=== PATIENT | female | born 1980 | race Caucasian/White ===

== ENCOUNTER 2017-12-20 05:48 | Inpatient (IN) | payer OTHER ==
[2017-12-20] MEDS ORDERED: Albuterol/Ipratropium Neb 3 ML AERS HHN ONE ×5 (06:15→11:46)
--- NOTE | 2017-12-20 06:28 | ED Physician Chart ---
ED Chief Complaint/HPI - Patient Information Date Seen:: 12/20/17 Time Seen:: 06:00 Chief Complaint:: shortness of breath History of Present Illness:: Patient developed marked shortness of breath at O230 this morning. Patient's had a cough productive of yellow sputum and wheezing for the last 10 days. Her axillary temperature has been up to 100 this morning. Only moments ago did she have 1 brief episode of pleuritic chest pain. No recent vomiting or diarrhea. 3 weeks ago patient had abdominal pain for which she went to [facility] and was diagnosed as having constipation. Patient thinks that about 1 year ago when she was she had her last tetanus shot which would have included pertussis. Patient discontinued taking control pills last June or July. She denies recent calf or thigh pain or swelling. No recent prolonged immobilizations. Allergies:: Allergies Allergy/AdvReac Type Severity Reaction Status Date / Time No Known Allergies Allergy Verified 12/20/17 06:03 Vitals:: Vital Signs - 8 hr 12/20/17 05:50 Temp 98.6 F HR 91 RR 24 BP 115/51 O2 Sat % 100 Historian:: Patient Review:: Nurse's Note Reviewed <Cliff Richmond - Last Filed: 12/20/17 06:55> - Patient Information History of Present Illness:: Patient also had intermittent RLQ abdominal pain for 4 weeks. She went to [facility] ER 3 weeks ago due to sharp pain and nausea and CT abdomen without contrast showed fecal impaction. However, the abdominal pain persisted until now. Patient also had frontal headache for 2 weeks. It was throbbing headache without photosensitivity. The headache had worsened since this morning. Allergies:: Allergies Allergy/AdvReac Type Severity Reaction Status Date / Time No Known Allergies Allergy Verified 12/20/17 06:03 Vitals:: Vital Signs - 8 hr 12/20/17 12/20/17 05:50 06:27 Temp 98.6 F HR 91 94 RR 24 15 BP 115/51 O2 Sat % 100 100 <Rickie Munoz - Last Filed: 12/20/17 23:34> ED Review of Systems - Review of Systems General/Constitutional: Fever, Chills Skin: No skin lesions, No rash, No bruising Head: No headache, No light-headedness Eyes: No loss of vision, No pain, No diplopia ENT: No earache, No nasal drainage, No sore throat, No tinnitus Neck: No neck pain, No swelling, No thyromegaly, No stiffness, No mass noted Cardio Vascular: No chest pain, No palpitations, No PND, No orthopnea, No edema Pulmonary: SOB, Cough, Sputum, No wheezing GI: No nausea, No vomiting, No diarrhea, No pain, No melena, No hematochezia, No constipation, No hematemesis G/U: No dysuria, No frequency, No hematuria Musculoskeletal: No bone or joint pain, No back pain, No muscle pain Endocrine: No polyuria, No polydipsia Psychiatric: No prior psych history, No depression, No anxiety, No suicidal ideation Hematopoietic: No bruising, No lymphadenopathy Allergic/Immuno: No urticaria, No angioedema Neurological: No syncope, No focal symptoms, No weakness, No paresthesia, No headache, No seizure, No dizziness, No confusion, No vertigo <Cliff Richmond - Last Filed: 12/20/17 06:55> ED Past Medical History - Past Medical History Past Medical History: Asthma/COPD, Other (exercise-induced asthma) Family History: Heart disease, HTN Social History: Non Smoker, Alcohol (occasional alcohol consumption), No Drug Use Surgical History: , other (laparotomy for ovarian cysts) Psychiatricy History: None <Cliff Richmond - Last Filed: 12/20/17 06:55> Family Medical History - Family Member Mother Ethnicity: Non- Living Status: Still Living Hx Family Hypertension: Yes <Cliff Richmond - Last Filed: 12/20/17 06:55> ED Physical Exam - Physical Examination General/Constitutional: Awake, Well-developed, well-nourished, Alert, No distress, GCS 15, Non-toxic appearing Other Gen/Cons comments:: Patient has frequent coughing. She speaks in full sentences. Head: Atraumatic Eyes: Lids, conjuctiva normal, PERRL, EOMI Skin: Nl inspection, No rash, No skin lesions, No ecchymosis, Well hydrated, No lymphadenopathy ENMT: External ears, nose nl, Nasal exam nl, Lips, teeth, gums nl Neck: Nontender, Full ROM w/o pain, No JVD, No nuchal rigidity, No bruit, No mass, No stridor Respiratory: Nl effort/Exclusion, Clear to Auscultation, No Wheeze/Rhonchi/Rales Cardio Vascular: RRR, No murmur, gallop, rubs, NL S1 S2 GI: No tenderness/rebounding/guarding, No organomegaly, No hernia, Normal BS's, Nondistended, No mass/bruits, No McBurney tenderness : No CVA tenderness Extremities: No tenderness or effusion, Full ROM, normal strength in all extremities, No edema, Normal digits & nails Neuro/Psych: Alert/oriented, DTR's symmetric, Normal sensory exam, Normal motor strength, Judgement/insight normal, Mood normal, Normal gait, No focal deficits Misc: Normal back, No paraspinal tenderness <Cliff Richmond - Last Filed: 12/20/17 06:55> - Physical Examination Other GI comments:: RLQ and LLQ tenderness Other Neuro/Psych comments:: No drift, no nuchal rigidity. <Rickie Munoz - Last Filed: 12/20/17 23:34> ED Labs/Radiology/EKG Results - Lab Results Results: Laboratory Tests 12/20/17 12/20/17 12/20/17 06:10 06:23 06:23 WBC 20.5 H* RBC 4.66 Hgb 13.9 Hct 41.2 MCV 88.5 MCH 29.9 MCHC Differential 33.8 RDW 11.6 Plt Count 278 MPV 7.9 Neutrophils % DOOR TRIMMER Band Neutrophils % 8 Lymphocytes % DOOR TRIMMER Monocytes % DOOR TRIMMER Eosinophils % DOOR TRIMMER Basophils % DOOR TRIMMER Neutrophils (Manual) 83 H Lymphocytes 6 L Monocytes 3 D-Dimer Sodium 134 L Potassium 3.1 L Chloride 104 Carbon Dioxide 16.9 L Anion Gap 16.2 H BUN 17 Creatinine 0.8 Est GFR ( Amer) > 60.0 Est GFR (Non-Af Amer) > 60.0 BUN/Creatinine Ratio 21.3 Glucose 118 H Whole Bld Lactic Acid Calcium 9.6 Magnesium 1.6 L Urine Test NEGATIVE POC Ur Test 12/20/17 12/20/17 12/20/17 06:23 06:23 06:23 WBC RBC Hgb Hct MCV MCH MCHC Differential RDW Plt Count MPV Neutrophils % Band Neutrophils % Lymphocytes % Monocytes % Eosinophils % Basophils % Neutrophils (Manual) Lymphocytes Monocytes D-Dimer 438 H Sodium Potassium Chloride Carbon Dioxide Anion Gap BUN Creatinine Est GFR ( Amer) Est GFR (Non-Af Amer) BUN/Creatinine Ratio Glucose Whole Bld Lactic Acid 2.53 H* Calcium Magnesium Urine Test POC Ur Test Negative - Radiology Results Results: CT abdomen/pelvis with contrast: mild bilateral adenexal fullness, no other definite acute abnormality CT head without contrast: no acute intracranial abnormalities <Rickie Munoz - Last Filed: 12/20/17 23:34> ED Assessment - Assessment General Assessment: Signed out to Dr. Munoz at 0700. <Cliff Richmond - Last Filed: 12/20/17 06:55> - Assessment Assessment/Comments:: NS 1L IV bolus Rocephin 1g IV Azithromycin 500mg IV Magnesium 2g IV KCl 40mEq PO DuoNeb D-dimer was 438, which was slightly higher than normal. CXR: no focal consolidation CT abdomen with contrast CT head without contrast NS 1L IV bolus repeated DuoNeb repeated <Rickie Munoz - Last Filed: 12/20/17 23:34> ED Septic Shock - <6hrs of presentation: Vital Signs: Vital Signs - 8 hr 12/20/17 05:50 Temp 98.6 F HR 91 RR 24 BP 115/51 O2 Sat % 100 <Cliff Richmond - Last Filed: 12/20/17 06:55> - . Is Septic Shock (SBP<90, OR Lactate>4 mmol\L) present?: No - <6hrs of presentation: Vital Signs: Vital Signs - 8 hr 12/20/17 12/20/17 05:50 06:27 Temp 98.6 F HR 91 94 RR 24 15 BP 115/51 O2 Sat % 100 100 <Rickie Munoz - Last Filed: 12/20/17 23:34> ED Reassessment (Disposition) - Reassessment Reassessment Condition:: Improved - Patient Disposition Discharge/Transfer:: Acute Care w/in this hosp Admitting Medical Physician:: Preston Wright <Rickie Munoz - Last Filed: 12/20/17 23:34> ED Discharge Plan <Cliff Richmond - Last Filed: 12/20/17 06:55> <Rickie Munoz - Last Filed: 12/20/17 23:34> - Patient Disposition Admit/Discharge/Transfer: Acute Care w/in this hosp Condition at Disposition: Stable
[2017-12-20 06:32] LABS: BASOPHILE ABSOLUTE 0.2 Th/cumm (0-0.2); HEMATOCRIT 41.2 % (41.0-60); MANUAL DIFF REQUIRED? YES; NEUTROPHILE ABSOLUTE 18.6 Th/cmm (1.8-8.0)
[2017-12-20 06:37] LABS: EOSINOPHILE ABSOLUTE 0.2 Th/cmm (0.1-0.4); HEMOGLOBIN 13.9 gm/dL (12-16); LYMPHOCYTE ABSOLUTE 1.1 Th/cmm (1.5-3.0); MEAN CELL VOLUME 88.5 fl (81-100); MEAN CORPUSCULAR HEMOGLOBIN 29.9 pg (27.0-31.0); MEAN CORPUSCULAR HGB CONC 33.8 pg (28.0-36.0); MEAN PLATELET VOLUME 7.9 fl; MONOCYTE ABSOLUTE 0.4 Th/cmm (0.3-1.0); PLATELET COUNT 278 Th/cmm (150-400); RED BLOOD COUNT 4.66 Mil/cmm (3.80-5.10); RED CELL DISTRIBUTION WIDTH 11.6 % (11.5-20.0)
[2017-12-20 06:41] LABS: WHITE BLOOD COUNT 20.5 Th/cmm (4.8-10.8)
[2017-12-20 06:46] LABS: ANION GAP 16.2 (7.0-16.0); BUN - UREA NITROGEN 17 mg/dL (7-25); CALCIUM SERUM 9.6 mg/dL (8.6-10.3); CARBON DIOXIDE 16.9 mEq/L (21.0-31.0); CHLORIDE 104 mEq/L (98-107); CREATININE - SERUM 0.8 mg/dL (0.6-1.2); GFR AFRICAN-AMERICAN > 60.0 ml/min (>90); GFR NON AFRICAN-AMERICAN > 60.0 ml/min; GLUCOSE 118 mg/dL (70-105); MAGNESIUM 1.6 mg/dL (1.9-2.7); POTASSIUM SERUM 3.1 mEq/L (3.5-5.1); SODIUM SERUM 134 mEq/L (136-145)
[2017-12-20] MEDS ORDERED: Potassium Chloride 20 mEq ER Tab PO ONE ×2 (07:08→07:37)
[2017-12-20] MEDS ORDERED: Mag Sulfate 2gm/50mL Premix 2 GM/50 ML BAG IV ONE ×2 (07:08→07:36)
[2017-12-20] MEDS ORDERED: Sodium Chloride 0.9% 1,000 ML IV ONE ×2 (07:12→11:26)
[2017-12-20] MEDS ORDERED: Azithromycin 500 MG in Sodium Chloride 0.9% 250 ML IV ONE (07:17)
[2017-12-20] MEDS ORDERED: cefTRIAXone 1 GM in Sodium Chloride 0.9% 50 ML IV ONE (07:17)
[2017-12-20 07:21] LABS: BAND NEUTROPHILE 8 % (0-10); LYMPHOCYTE 6 % (20-50); MONOCYTE 3 % (2-10); NEUTROPHILS 83 % (40-80); TOTAL CELLS COUNTED 100
--- NOTE | 2017-12-20 07:50 | Diagnostic Imaging Report ---
Portable chest x-ray Time: 0718 hours History: Shortness of breath Allowing for portable technique the heart size is normal. No focal pulmonary parenchymal processes. No hilar or mediastinal abnormalities. Impression: No acute abnormalities.
[2017-12-20] MEDS ORDERED: IOHEXOL 300mgI/mL 100 ML VIAL ONE (10:05)
[2017-12-20 10:12] LABS: pH 7.43 (7.35-7.45)
[2017-12-20 10:13] LABS: ALLEN TEST y
[2017-12-20 11:08] LABS: EOSINOPHILE ABSOLUTE 0.1 Th/cmm (0.1-0.4); HEMATOCRIT 36.6 % (41.0-60); HEMOGLOBIN 12.8 gm/dL (12-16); LYMPHOCYTE ABSOLUTE 0.9 Th/cmm (1.5-3.0); MANUAL DIFF REQUIRED? YES; MEAN CELL VOLUME 88.7 fl (81-100); MEAN CORPUSCULAR HEMOGLOBIN 31.1 pg (27.0-31.0); MEAN PLATELET VOLUME 7.7 fl; MONOCYTE ABSOLUTE 0.6 Th/cmm (0.3-1.0); NEUTROPHILE ABSOLUTE 25.2 Th/cmm (1.8-8.0); PLATELET COUNT 244 Th/cmm (150-400); RED BLOOD COUNT 4.13 Mil/cmm (3.80-5.10); RED CELL DISTRIBUTION WIDTH 11.4 % (11.5-20.0)
--- NOTE | 2017-12-20 11:08 | Diagnostic Imaging Report ---
CT scan abdomen and pelvis with intravenous contrast HISTORY: Pain Total DLP equals 527 CTDI equals 11.5 Following administration of intravenous contrast, axial sections were obtained from the xiphoid process down to the pubic symphysis. The liver exhibits a normal size and contour with a homogeneous parenchyma. No focal lesions. The spleen appears normal. No abnormality seen about the pancreas. No focal renal lesions. No hydronephrosis. The exam of the pelvis demonstrates bilateral adnexal fullness with hypodensities probably related to ovarian follicular changes. No other significant abnormal masses. No free fluid in the pelvis. The urinary bladder appears normal. No definite abnormality seen in the region of the appendix. IMPRESSION: 1. Mild bilateral adnexal fullness with hypodensities probably related to ovarian follicular changes 2. No other definite acute abnormalities
[2017-12-20 11:17] LABS: WHITE BLOOD COUNT 26.8 Th/cmm (4.8-10.8)
[2017-12-20 11:29] LABS: ANION GAP 11.9 (7.0-16.0); BUN - UREA NITROGEN 12 mg/dL (7-25); CALCIUM SERUM 8.6 mg/dL (8.6-10.3); CARBON DIOXIDE 20.9 mEq/L (21.0-31.0); CHLORIDE 103 mEq/L (98-107); CREATININE - SERUM 0.7 mg/dL (0.6-1.2); GFR AFRICAN-AMERICAN > 60.0 ml/min (>90); GFR NON AFRICAN-AMERICAN > 60.0 ml/min; GLUCOSE 100 mg/dL (70-105); MAGNESIUM 2.6 mg/dL (1.9-2.7); POTASSIUM SERUM 3.8 mEq/L (3.5-5.1); SODIUM SERUM 132 mEq/L (136-145)
[2017-12-20 11:32] LABS: NEUTROPHILS 87 % (40-80); TOTAL CELLS COUNTED 100
[2017-12-20 11:33] LABS: BAND NEUTROPHILE 8 % (0-10); LYMPHOCYTE 5 % (20-50)
--- NOTE | 2017-12-20 14:16 | Diagnostic Imaging Report ---
CT scan of the brain without contrast History: Headache Total DLP equals 601 CTDI equals 36.5 Axial sections were obtained from the base of the skull to the vertex. There is a normal ventricular system size. No focal parenchymal lesions are seen. No evidence of any mass effect or shift of midline structures. No extra-axial masses or abnormal fluid collections. Impression: Negative examination
[2017-12-20] MEDS: D5-0.45NS 1,000 ML IV SCH (17:25)
[2017-12-20] MEDS: methylPREDNISolone SS 40 mg Vial IVP SCH ×2 (17:25→23:31)
[2017-12-20] MEDS: Acetaminophen 500 MG TAB PO PRN (19:03)
[2017-12-20] MEDS: Albuterol/Ipratropium Neb 3 ML AERS HHN SCH (19:47)
[2017-12-21] MEDS: Albuterol/Ipratropium Neb 3 ML AERS HHN SCH ×4 (00:39→19:17)
[2017-12-21] MEDS: Acetaminophen 500 MG TAB PO PRN ×3 (01:15→16:30)
[2017-12-21] MEDS: cefTRIAXone 1 GM in Sodium Chloride 0.9% 50 ML IV SCH (05:00)
[2017-12-21] MEDS: D5-0.45NS 1,000 ML IV SCH ×2 (05:00→17:25)
[2017-12-21] MEDS: methylPREDNISolone SS 40 mg Vial IVP SCH ×4 (05:01→23:31)
[2017-12-21 14:15] LABS: BASOPHILE ABSOLUTE 0.1 Th/cumm (0-0.2); HEMATOCRIT 39.1 % (41.0-60); HEMOGLOBIN 13.3 gm/dL (12-16); LYMPHOCYTE ABSOLUTE 0.9 Th/cmm (1.5-3.0); MANUAL DIFF REQUIRED? YES; MEAN CELL VOLUME 89.3 fl (81-100); MEAN CORPUSCULAR HEMOGLOBIN 30.3 pg (27.0-31.0); MEAN CORPUSCULAR HGB CONC 33.9 pg (28.0-36.0); MEAN PLATELET VOLUME 8.3 fl; MONOCYTE ABSOLUTE 0.5 Th/cmm (0.3-1.0); NEUTROPHILE ABSOLUTE 20.5 Th/cmm (1.8-8.0); PLATELET COUNT 280 Th/cmm (150-400); RED BLOOD COUNT 4.38 Mil/cmm (3.80-5.10); RED CELL DISTRIBUTION WIDTH 11.7 % (11.5-20.0)
[2017-12-21 14:23] LABS: ALB/GLOB RATIO 1.4 (1.0-1.8); ALBUMIN 4.4 gm/dL (3.7-5.3); ALKALINE PHOSPHATASE 86 U/L (34-104); ANION GAP 14.2 (7.0-16.0); BILIRUBIN,TOTAL 0.4 mg/dL (0.3-1.0); BUN - UREA NITROGEN 10 mg/dL (7-25); CALCIUM SERUM 9.8 mg/dL (8.6-10.3); CARBON DIOXIDE 19.8 mEq/L (21.0-31.0); CHLORIDE 106 mEq/L (98-107); CREATININE - SERUM 0.7 mg/dL (0.6-1.2); GFR AFRICAN-AMERICAN > 60.0 ml/min (>90); GFR NON AFRICAN-AMERICAN > 60.0 ml/min; GLUCOSE 164 mg/dL (70-105); SGOT 11 U/L (13-39); SGPT/ALT 13 U/L (7-52); SODIUM SERUM 136 mEq/L (136-145); TOTAL PROTEIN,SERUM 7.6 gm/dL (6.0-8.3)
[2017-12-21 14:37] LABS: TOTAL CELLS COUNTED 100
[2017-12-21 14:39] LABS: BAND NEUTROPHILE 5 % (0-10); LYMPHOCYTE 4 % (20-50); NEUTROPHILS 91 % (40-80)
--- NOTE | 2017-12-21 14:57 | Consultation ---
DATE OF CONSULTATION: 12/21/2017 PATIENT OF: Dr. Fulton. Thank you very much for this consultation. HISTORY OF PRESENT ILLNESS: This is a 37-year-old female with history of asthma, who woke up yesterday with shortness of breath, cough, congestion, and tachypnea and required to come to the Emergency Room for further treatment and management. The patient was started on Solu-Medrol, nebulizer treatment, antibiotics and has improved. Initial labs showed leukocytosis and increased lactic acid. The patient feeling lot better. Denies any other medical problems. She says she uses a rescue inhaler on and off for exercise-induced asthma, but she had an asthma attack, she said last time she was hiking at about 2 years ago. Does not use control medications. Denies any other medical problems. Denies any drinking or drug use. PHYSICAL EXAMINATION: GENERAL: Awake and alert, not in acute distress. VITAL SIGNS: Temperature is 97.6, pulse 77, respiration is 18, blood pressure 105/66, and saturation is 96%. HEENT: Atraumatic and normocephalic. Pupils are reactive to light and accommodation. Ears, nose, and throat normal. NECK: Supple. No JVD. CHEST: There are scattered rhonchi, minimal wheezing. HEART: Regular rate and rhythm. ABDOMEN: Soft. EXTREMITIES: No edema. LABORATORY DATA AND DIAGNOSTIC STUDIES: WBC is 26.8, hemoglobin 12.8, hematocrit 36.6, and platelets 244. ABGs: pH 7.43, pCO2 31, pO2 71, bicarb 23, saturation 95%. potassium 3.8, BUN is 12, and creatinine 0.7. Lactic acid 2.69. Chest x-ray, mild haziness in the right side. IMPRESSION: This is a 37-year-old female with; 1. Acute asthma exacerbation. 2. Rule out any developing pneumonia. 3. Acute bronchitis. 4. Rule out any other source of infection. PLAN: 1. IV antibiotics. 2. Nebulizer treatment. 3. IV steroids. 4. Follow up labs, lactic acid, and chest x-ray. I will follow the patient with you. The patient was advised to use steroid inhaler on a regular basis. [facility]# [id number] [facility]
[2017-12-21 15:13] LABS: URINE MICROSCOPIC INDICATED? YES; URINE SOURCE CLEAN C
[2017-12-21 15:24] LABS: URINE BILIRUBIN NEGATIVE (NEGATIVE); URINE BLOOD NEGATIVE (NEGATIVE); URINE GLUCOSE (UA) NEGATIVE (NEGATIVE); URINE KETONE NEGATIVE (NEGATIVE); URINE LEUKOCYTE ESTERASE NEGATIVE (NEGATIVE); URINE NITRATE NEGATIVE (NEGATIVE); URINE PH 6.5 (4.6 - 8.0); URINE PROTEIN NEGATIVE (NEGATIVE); URINE UROBILINOGEN 0.2 E.U./dL (0.2 - 1.0)
[2017-12-21 15:26] LABS: URINE CLARITY CLEAR (CLEAR); URINE COLOR YELLOW
[2017-12-21 15:28] LABS: URINE BACTERIA OCCASIONAL /hpf (NONE SEEN); URINE EPITHELIAL CELLS FEW /lpf (FEW); URINE RBC 0-2 /hpf (0-5); URINE WBC 0-2 /hpf (0-5)
--- NOTE | 2017-12-21 17:25 | History & Physical ---
ADMIT DATE: 12/20/2017 CHIEF COMPLAINT: Chest pain, shortness of breath, and cough. 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 When the patient arrived in the Emergency Room, the patient did have evidence of hypotension, which was resolved after IV hydration. The patient was noted to have elevated lactic acid as well. The patient was admitted to the hospital for further treatment. PAST MEDICAL HISTORY: None. MEDICATIONS AT HOME: Albuterol inhalers. ALLERGIES: None. SOCIAL HISTORY: Lives in ____. Denies any smoking cigarette, drinking alcohol, using street drug use. FAMILY MEDICAL HISTORY: Remarkable for diabetes and hypertension. REVIEW OF SYSTEMS: The patient denies any headache, blurred vision, double vision, dysphagia, odynophagia, runny nose, stuffy nose, fever, chills, abdominal pain, nausea, vomiting, diarrhea, dysuria, hematuria, hematochezia, melena, no seizure or syncopal episode. No weight loss or weight gain. PHYSICAL EXAMINATION: GENERAL: Alert, awake, oriented, lying in the bed without any acute distress. VITAL SIGNS: Temperature 97.6, pulse 87, respiratory rate 18, and blood pressure 105/66. HEENT: Normocephalic, atraumatic. Extraocular muscles intact. Tongue was pink and coated. Oropharynx congested. Oral mucosa congested. NECK: Supple, no JVD, no hepatojugular reflex, no lymphadenopathy, no thyromegaly, no carotid bruit. HEART: Both heart sounds are regular. CHEST: Lung equal in expansion with expiratory wheezing. ABDOMEN: Soft. No guarding, no rigidity. Bowel sounds are present. No palpable mass. EXTREMITIES: No edema, no cyanosis. NEUROLOGIC: Nonfocal. AVAILABLE DIAGNOSTIC DATA: Performed in the Emergency Room has been reviewed. CLINICAL IMPRESSION: 1. Asthma exacerbation. 2. Rule out community-acquired pneumonia. 3. Elevated lactic acid. 4. Exercise-induced asthma by history. PLAN: 1. Admit this patient to Med/Surg floor. 2. Oxygen. 3. Nebulizer treatment. 4. IV steroid. 5. IV antibiotic. 6. Pulmonary consult. 7. General nursing care. 8. CT chest. 9. Follow lab. 10. Follow consult and recommendation. 11. Care plan reviewed and discussed with staff. [facility]# [id number]
[2017-12-22] MEDS: Albuterol/Ipratropium Neb 3 ML AERS HHN SCH ×4 (00:17→18:59)
[2017-12-22] MEDS: Albuterol/Ipratropium Neb 3 ML AERS HHN PRN (05:04)
[2017-12-22] MEDS: cefTRIAXone 1 GM in Sodium Chloride 0.9% 50 ML IV SCH (05:21)
[2017-12-22] MEDS: methylPREDNISolone SS 40 mg Vial IVP SCH ×4 (05:22→20:14)
[2017-12-22 05:24] LABS: BASOPHILE ABSOLUTE 0.1 Th/cumm (0-0.2); HEMATOCRIT 37.5 % (41.0-60); HEMOGLOBIN 12.7 gm/dL (12-16); MANUAL DIFF REQUIRED? YES; MEAN CELL VOLUME 90.1 fl (81-100); MEAN CORPUSCULAR HEMOGLOBIN 30.5 pg (27.0-31.0); MEAN CORPUSCULAR HGB CONC 33.8 pg (28.0-36.0); MEAN PLATELET VOLUME 8.4 fl; MONOCYTE ABSOLUTE 0.4 Th/cmm (0.3-1.0); NEUTROPHILE ABSOLUTE 25.6 Th/cmm (1.8-8.0); PLATELET COUNT 259 Th/cmm (150-400); RED BLOOD COUNT 4.16 Mil/cmm (3.80-5.10)
[2017-12-22 05:49] LABS: WHITE BLOOD COUNT 27.1 Th/cmm (4.8-10.8)
[2017-12-22 06:00] LABS: ALB/GLOB RATIO 1.4 (1.0-1.8); ALKALINE PHOSPHATASE 77 U/L (34-104); ANION GAP 11.3 (7.0-16.0); BILIRUBIN,TOTAL 0.3 mg/dL (0.3-1.0); BUN - UREA NITROGEN 9 mg/dL (7-25); CALCIUM SERUM 9.3 mg/dL (8.6-10.3); CARBON DIOXIDE 22.9 mEq/L (21.0-31.0); CHLORIDE 107 mEq/L (98-107); CREATININE - SERUM 0.6 mg/dL (0.6-1.2); GFR AFRICAN-AMERICAN > 60.0 ml/min (>90); GFR NON AFRICAN-AMERICAN > 60.0 ml/min; GLUCOSE 163 mg/dL (70-105); POTASSIUM SERUM 4.2 mEq/L (3.5-5.1); SGOT 10 U/L (13-39); SGPT/ALT 12 U/L (7-52); SODIUM SERUM 137 mEq/L (136-145); TOTAL PROTEIN,SERUM 6.8 gm/dL (6.0-8.3)
[2017-12-22 06:38] LABS: LYMPHOCYTE 5 % (20-50); MONOCYTE 1 % (2-10); NEUTROPHILS 94 % (40-80); PLATELET ESTIMATE ADEQUATE (NORMAL); TOTAL CELLS COUNTED 100
--- NOTE | 2017-12-22 09:36 | Diagnostic Imaging Report ---
Exam: CT examination of the chest HISTORY: Cough Total DLP equals 210 CTDI equals 7.0 I is: Multiple contiguous thin section of the chest were obtained from thoracic outlet to the upper abdomen without administration of contrast material no prior studies available comparison The study was correlated with chest x-ray of 12/20/2017. The study demonstrates normal aeration of lung parenchyma. Mediastinal structures midline the heart is not enlarged. No acute pulmonic infiltrates or effusions are noted. There is evidence for mild basilar atelectasis. No abnormal adenopathy appreciated. The study is somewhat limited without the demonstration contrast material. IMPRESSION: Normal examination of the chest, mild basilar atelectasis 8 Follow-up chest x-ray examination might be helpful.
--- NOTE | 2017-12-22 14:23 | Consultation ---
Consult Note - Consult Note Service Date: 12/22/17 Referring Physician: Preston Wright Consult Note: PHYSICIAN Consultation Note: Date of Admission: 12/20/17 Purpose of Consultation: Leukocytosis. Chief Complaint: Patient JACINTO HERNANDEZ was admitted to location Medical/ Surgical Unit I with ASTHMA EXACERBATION. History of Present Illness: Patient is 37-year-old female with a past medical history of exercise-induced asthma, developed cough and shortness of breath with wheezing diffusely face today. She had developed fever of 101F, so she came to the ER for further evaluation and management. On initial evaluation, her temperature was 98.6F and WBC count 20,500 and neutrophils 83%. CT scan of the abdomen pelvis and chest and this were noncontributory. She was diagnosed with asthma and put on Solu-Medrol and nebulizer treatment. Her WBC count went up to 27,000. Antibiotic-baldwin, Rocephin was started. ID consult was called for further evaluation of leukocytosis. During the hospital stay, she had not had any fever. Past Medical History: Exercise-induced asthma. Last exacerbation of asthma was 2 years ago while she was hiking. Allergies Allergy/AdvReac Type Severity Reaction Status Date / Time No Known Allergies Allergy Verified 12/20/17 06:03 Vital Signs Temp 99.0 F 12/22/17 12:00 Pulse 84 12/22/17 13:53 Resp 20 12/22/17 13:53 BP 94/47 12/22/17 12:00 Pulse Ox 97 12/22/17 13:53 Intake & Output 12/21/17 12/22/17 12/22/17 18:59 06:59 18:59 Intake Total 2531.25 50 Balance 2531.25 50 Weight (lbs) 81.193 kg 81.647 kg Intake: Intake, IV Amount 931.25 50 D5-0.45NS 1,000 ml @ 75 931.25 mls/hr IV .[id number] MAUREEN Rx #:[id number] cefTRIAXone 1 gm In 50 Sodium Chloride 0.9% 50 ml @ 100 mls/hr IV Q24H MAUREEN Rx#:[id number] Oral 1600 Other: # Voids 10 # Bowel Movements 1 Weight Source Bedscale Bedscale Laboratory Results - last 24 hr 12/21/17 12/21/17 12/21/17 13:56 13:56 13:56 WBC 22.0 H* RBC 4.38 Hgb 13.3 Hct 39.1 L MCV 89.3 MCH 30.3 MCHC Differential 33.9 RDW 11.7 Plt Count 280 MPV 8.3 Band Neutrophils % 5 Neutrophils (Manual) 91 H Lymphocytes 4 L Monocytes Platelet Estimate Sodium 136 Potassium 4.0 Chloride 106 Carbon Dioxide 19.8 L Anion Gap 14.2 BUN 10 Creatinine 0.7 Est GFR ( Amer) > 60.0 Est GFR (Non-Af Amer) > 60.0 BUN/Creatinine Ratio 14.3 Glucose 164 H Whole Bld Lactic Acid 4.02 H* Calcium 9.8 Total Bilirubin 0.4 AST 11 L ALT 13 Alkaline Phosphatase 86 Total Protein 7.6 Albumin 4.4 Globulin 3.2 Albumin/Globulin Ratio 1.4 Urine Source Urine Color Urine Clarity Urine pH Ur Specific Pierce Urine Protein Urine Glucose (UA) Urine Ketones Urine Blood Urine Nitrate Urine Bilirubin Urine Urobilinogen Ur Leukocyte Esterase Urine RBC Urine WBC Ur Epithelial Cells Urine Bacteria 12/21/17 12/21/17 12/22/17 14:00 15:58 04:50 WBC 27.1 H* D RBC 4.16 Hgb 12.7 Hct 37.5 L MCV 90.1 MCH 30.5 MCHC Differential 33.8 RDW 12.0 Plt Count 259 MPV 8.4 Band Neutrophils % Neutrophils (Manual) 94 H Lymphocytes 5 L Monocytes 1 L Platelet Estimate ADEQUATE Sodium Potassium Chloride Carbon Dioxide Anion Gap BUN Creatinine Est GFR ( Amer) Est GFR (Non-Af Amer) BUN/Creatinine Ratio Glucose Whole Bld Lactic Acid 3.12 H* Calcium Total Bilirubin AST ALT Alkaline Phosphatase Total Protein Albumin Globulin Albumin/Globulin Ratio Urine Source CLEAN C Urine Color YELLOW Urine Clarity CLEAR Urine pH 6.5 Ur Specific Pierce <= 1.005 Urine Protein NEGATIVE Urine Glucose (UA) NEGATIVE Urine Ketones NEGATIVE Urine Blood NEGATIVE Urine Nitrate NEGATIVE Urine Bilirubin NEGATIVE Urine Urobilinogen 0.2 Ur Leukocyte Esterase NEGATIVE Urine RBC 0-2 Urine WBC 0-2 Ur Epithelial Cells FEW Urine Bacteria OCCASIONAL 12/22/17 12/22/17 04:50 12:42 WBC RBC Hgb Hct MCV MCH MCHC Differential RDW Plt Count MPV Band Neutrophils % Neutrophils (Manual) Lymphocytes Monocytes Platelet Estimate Sodium 137 Potassium 4.2 Chloride 107 Carbon Dioxide 22.9 Anion Gap 11.3 BUN 9 Creatinine 0.6 Est GFR ( Amer) > 60.0 Est GFR (Non-Af Amer) > 60.0 BUN/Creatinine Ratio 15.0 Glucose 163 H Whole Bld Lactic Acid 1.78 Calcium 9.3 Total Bilirubin 0.3 AST 10 L ALT 12 Alkaline Phosphatase 77 Total Protein 6.8 Albumin 4.0 Globulin 2.8 Albumin/Globulin Ratio 1.4 Urine Source Urine Color Urine Clarity Urine pH Ur Specific Pierce Urine Protein Urine Glucose (UA) Urine Ketones Urine Blood Urine Nitrate Urine Bilirubin Urine Urobilinogen Ur Leukocyte Esterase Urine RBC Urine WBC Ur Epithelial Cells Urine Bacteria Home Medication Medication Instructions Recorded Type Albuterol Sulfate [Ventolin Hfa] 2 puff IH Q4HR PRN 12/20/17 History Current Medications Generic Name Dose Route Start Last Admin Trade Name Freq PRN Reason Stop Dose Admin Albuterol/Ipratropium 3 ml 12/20/17 19:00 12/22/17 13:53 Duoneb Neb [facility] 02/18/18 18:59 3 ml Q6HRT MAUREEN Administration Albuterol/Ipratropium 3 ml 12/21/17 16:26 12/22/17 05:04 Duoneb Neb N 02/19/18 16:25 3 ml Q2HRT PRN Administration Wheezing Dextrose/Sodium Chloride 1,000 mls @ 75 mls/hr 12/20/17 15:32 12/21/17 17:25 D5-0.45ns IV 02/18/18 15:31 75 mls/hr .[id number] MAUREEN Administration Ceftriaxone Sodium 1 gm/ 50 mls @ 100 mls/hr 12/21/17 06:00 12/22/17 08:41 Sodium Chloride IV 02/19/18 05:59 Infused Q24H MAUREEN Infusion Ibuprofen 600 mg 12/21/17 21:22 12/22/17 10:05 Motrin PO 02/19/18 21:17 600 mg Q6H PRN Administration Headache/Fever Methylprednisolone Sodium Succinate 40 mg 12/22/17 13:00 12/22/17 13:06 Solu-Medrol IVP 02/20/18 12:59 40 mg Q8HR MAUREEN Administration Review of Systems: A 12 point ROS was reviewed with the pertinent positive and negatives noted in the HPI. Gen.: Patient denies any fever or chills at this time. HEENT: Essentially denies any diplopia or photophobia no sore throat. Pulmonary: Patient has cough and shortness of breath. It is better than that on her presentation. Heart: S1 and S2 within normal limits regular. Abdomen: Soft, nontender, nondistended bowel sounds present. Musculoskeletal: No joint pain or joint swelling. SAMPLE SUPERVISOR: No headaches or dizziness or focal distress. Complaint complains of on and off headache. But no Stiffness. 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 Family Medical History Not significant. Physical Exam: General: Comfortable not in acute distress. Well-nourished well-developed. HEENT: Head: Normocephalic, atraumatic. Oral cavity: Moist, pink tongue eyes: No pallor and icterus. Pupil PERRLA. Neck: Supple, no JVD. No use of accessory neck muscles. No nephropathy. No thyromegaly Cardio: S1 and S2 within normal limits regular rhythm no murmur no gallop. Respiratory: Vesicular with some crackles no wheezing. Abdominal: Soft, nontender, nondistended bowel sounds present. Genital/Urinary: No cyanosis, no clubbing, no edema. Extremities: No cyanosis, no clubbing, and edema. Neurological: Alert, awake, oriented 3. Assessment: 1. Leukocytosis. There is no fever. No reactive thrombocytosis, no bandemia. Patient is to failure. It seems very reactive versus a leukemoid reaction. Cannot rule out any occult infection. Urinalysis is negative. Blood cultures are negative. CT scan of the chest abdomen pelvis negative for any abscess or infection. 2. Lactic acidosis most likely due to asthma exacerbation. Less likely sepsis. As there is no sinus symptoms of sepsis at this time. 3. Asthma with acute exacerbation. 4. Cough may have bronchitis. Or due to asthma exacerbation 5. History of polycystic ovarian syndrome. Plan: Check indium scan. Check procalcitonin. Change antibiotic to Zosyn and Zithromax. Hematology consultation as per Dr. Wright. Thank you, Dr. Wright for involving me in taking care of this patient Signed, Luis Weldon M.D. 12/22/[id number]
[2017-12-22] MEDS: Azithromycin 500 MG in Sodium Chloride 0.9% 250 ML IV SCH (17:55)
[2017-12-22] MEDS: APAP/Oxycodone 5/325mg Oral Tab PO PRN (20:14)
--- NOTE | 2017-12-22 22:41 | Progress Notes ---
DATE: 12/22/2017 IDENTIFICATION: A 37-year-old female. The patient seen and examined. The patient is complaining about cough and congestion. The patient still has a leukocytosis. The patient currently denies any chest pain, denies any abdominal pain. Does have some dizziness. Lab test were done which revealed lactic acid of 1.78 with a normal chemistry panel. PHYSICAL EXAMINATION: HEENT: No facial asymmetry. NECK: Supple, no JVD. HEART: Regular. CHEST: Lung equal and some expiratory wheezing. ABDOMEN: Soft. No guarding, rigidity. Bowel sounds are present. EXTREMITIES: No edema. CLINICAL IMPRESSION: 1. Leukocytosis, probably leukemoid reaction. 2. Asthma exacerbation. 3. History of exercise-induced asthma. PLAN: 1. Oxygen. 2. Nebulizer treatment. 3. IV steroid. 4. IV antibiotic. 5. General nursing care. 6. Indium scan is ordered by Infectious Disease. 7. Follow lab. 8. Follow consult recommendation. 9. Care plan reviewed and discussed. JOB# [id number]
[2017-12-23] MEDS: D5-0.45NS 1,000 ML IV SCH ×2 (05:13→23:23)
[2017-12-23] MEDS: methylPREDNISolone SS 40 mg Vial IVP SCH ×3 (05:14→21:18)
[2017-12-23 05:47] LABS: % BASOPHILS 0.1 % (0.0-2.0); % LYMPHOCYTES 7.8 % (20.0-50.0); MONOCYTE ABSOLUTE 0.5 Th/cmm (0.3-1.0)
[2017-12-23 05:55] LABS: % EOSINOPHILS 0.1 % (0.0-5.0); % MONOCYTES 2.8 % (2.0-10.0); % NEUTROPHILS 89.2 % (40.0-80.0); HEMATOCRIT 35.9 % (41.0-60); HEMOGLOBIN 12.3 gm/dL (12-16); LYMPHOCYTE ABSOLUTE 1.4 Th/cmm (1.5-3.0); MEAN CELL VOLUME 89.2 fl (81-100); MEAN CORPUSCULAR HEMOGLOBIN 30.5 pg (27.0-31.0); MEAN CORPUSCULAR HGB CONC 34.2 pg (28.0-36.0); MEAN PLATELET VOLUME 8.4 fl; NEUTROPHILE ABSOLUTE 16.6 Th/cmm (1.8-8.0); PLATELET COUNT 262 Th/cmm (150-400); RED BLOOD COUNT 4.02 Mil/cmm (3.80-5.10); RED CELL DISTRIBUTION WIDTH 12.3 % (11.5-20.0)
[2017-12-23 05:58] LABS: WHITE BLOOD COUNT 18.5 Th/cmm (4.8-10.8)
[2017-12-23 05:59] LABS: ALB/GLOB RATIO 1.4 (1.0-1.8); ALBUMIN 3.8 gm/dL (3.7-5.3); ALKALINE PHOSPHATASE 69 U/L (34-104); ANION GAP 11.6 (7.0-16.0); BILIRUBIN,TOTAL 0.3 mg/dL (0.3-1.0); BUN - UREA NITROGEN 7 mg/dL (7-25); CALCIUM SERUM 9.1 mg/dL (8.6-10.3); CARBON DIOXIDE 24.5 mEq/L (21.0-31.0); CHLORIDE 105 mEq/L (98-107); CREATININE - SERUM 0.6 mg/dL (0.6-1.2); GFR AFRICAN-AMERICAN > 60.0 ml/min (>90); GFR NON AFRICAN-AMERICAN > 60.0 ml/min; GLUCOSE 129 mg/dL (70-105); POTASSIUM SERUM 4.1 mEq/L (3.5-5.1); SGOT 11 U/L (13-39); SGPT/ALT 15 U/L (7-52); SODIUM SERUM 137 mEq/L (136-145); TOTAL PROTEIN,SERUM 6.6 gm/dL (6.0-8.3)
[2017-12-23] MEDS: Albuterol/Ipratropium Neb 3 ML AERS HHN SCH ×3 (07:10→18:58)
[2017-12-23] MEDS: APAP/Oxycodone 5/325mg Oral Tab PO PRN ×3 (08:55→23:17)
[2017-12-23] MEDS ORDERED: Probiotic Screen MC PRN (09:30)
--- NOTE | 2017-12-23 11:27 | Infectious Disease Prog Note ---
Infectious Disease Subjective - Review of Systems Service Date: 12/23/17 Subjective: No fever, no chills. breathing better, WBC Count is better. Lactic acid improved. Infectious Disease Objective - Results Result Diagrams: 12/23/17 05:06 12/23/17 05:06 Recent Labs: Laboratory Last Values WBC 18.5 Th/cmm (4.8-10.8) H 12/23/17 05:06 RBC 4.02 Mil/cmm (3.80-5.10) 12/23/17 05:06 Hgb 12.3 gm/dL (12-16) 12/23/17 05:06 Hct 35.9 % (41.0-60) L 12/23/17 05:06 MCV 89.2 fl (81-100) 12/23/17 05:06 MCH 30.5 pg (27.0-31.0) 12/23/17 05:06 MCHC Differential 34.2 pg (28.0-36.0) 12/23/17 05:06 RDW 12.3 % (11.5-20.0) 12/23/17 05:06 Plt Count 262 Th/cmm (150-400) 12/23/17 05:06 MPV 8.4 fl 12/23/17 05:06 Neutrophils % 89.2 % (40.0-80.0) H 12/23/17 05:06 Band Neutrophils % 5 % (0-10) 12/21/17 13:56 Lymphocytes % 7.8 % (20.0-50.0) L 12/23/17 05:06 Monocytes % 2.8 % (2.0-10.0) 12/23/17 05:06 Eosinophils % 0.1 % (0.0-5.0) 12/23/17 05:06 Basophils % 0.1 % (0.0-2.0) 12/23/17 05:06 Neutrophils (Manual) 94 % (40-80) H 12/22/17 04:50 Lymphocytes 5 % (20-50) L 12/22/17 04:50 Monocytes 1 % (2-10) L 12/22/17 04:50 Platelet Estimate ADEQUATE (NORMAL) 12/22/17 04:50 D-Dimer 438 ng/mL (100-400) H 12/20/17 06:23 Specimen Source Arterial 12/20/17 10:00 Sample Site Right Radial 12/20/17 10:00 pH 7.43 (7.35-7.45) 12/20/17 10:00 pCO2 31.0 mmHg (35.0-45.0) L 12/20/17 10:00 pO2 71.0 mmHg (80.0-100.0) L 12/20/17 10:00 HCO3 22.0 mEq/L (20.0-26.0) 12/20/17 10:00 Base Excess -2.8 mEq/L (-3.0-3.0) 12/20/17 10:00 O2 Saturation 95.0 % (92.0-100.0) 12/20/17 10:00 Ortiz Test y 12/20/17 10:00 Vent Rate n/a 12/20/17 10:00 Inspired O2 21 12/20/17 10:00 Tidal Volume n/a 12/20/17 10:00 PEEP n/a 12/20/17 10:00 Pressure (ins/psv/peep) n/a 12/20/17 10:00 Critical Value raymon Kelly 12/20/17 10:00 Sodium 137 mEq/L (136-145) 12/23/17 05:06 Potassium 4.1 mEq/L (3.5-5.1) 12/23/17 05:06 Chloride 105 mEq/L (98-107) 12/23/17 05:06 Carbon Dioxide 24.5 mEq/L (21.0-31.0) 12/23/17 05:06 Anion Gap 11.6 (7.0-16.0) 12/23/17 05:06 BUN 7 mg/dL (7-25) 12/23/17 05:06 Creatinine 0.6 mg/dL (0.6-1.2) 12/23/17 05:06 Est GFR ( Amer) > 60.0 ml/min (>90) 12/23/17 05:06 Est GFR (Non-Af Amer) > 60.0 ml/min 12/23/17 05:06 BUN/Creatinine Ratio 11.7 12/23/17 05:06 Glucose 129 mg/dL (70-105) H 12/23/17 05:06 Whole Bld Lactic Acid 1.78 mmol/L (0.60-1.99) 12/22/17 12:42 Calcium 9.1 mg/dL (8.6-10.3) 12/23/17 05:06 Magnesium 2.6 mg/dL (1.9-2.7) 12/20/17 10:55 Total Bilirubin 0.3 mg/dL (0.3-1.0) 12/23/17 05:06 AST 11 U/L (13-39) L 12/23/17 05:06 ALT 15 U/L (7-52) 12/23/17 05:06 Alkaline Phosphatase 69 U/L (34-104) 12/23/17 05:06 Total Protein 6.6 gm/dL (6.0-8.3) 12/23/17 05:06 Albumin 3.8 gm/dL (3.7-5.3) 12/23/17 05:06 Globulin 2.8 gm/dL 12/23/17 05:06 Albumin/Globulin Ratio 1.4 (1.0-1.8) 12/23/17 05:06 Urine Source CLEAN C 12/21/17 14:00 Urine Color YELLOW 12/21/17 14:00 Urine Clarity CLEAR (CLEAR) 12/21/17 14:00 Urine pH 6.5 (4.6 - 8.0) 12/21/17 14:00 Ur Specific [place] <= 1.005 (1.005-1.030) 12/21/17 14:00 Urine Protein NEGATIVE mg/dL (NEGATIVE) 12/21/17 14:00 Urine Glucose (UA) NEGATIVE mg/dL (NEGATIVE) 12/21/17 14:00 Urine Ketones NEGATIVE mg/dL (NEGATIVE) 12/21/17 14:00 Urine Blood NEGATIVE (NEGATIVE) 12/21/17 14:00 Urine Nitrate NEGATIVE (NEGATIVE) 12/21/17 14:00 Urine Bilirubin NEGATIVE (NEGATIVE) 12/21/17 14:00 Urine Urobilinogen 0.2 E.U./dL (0.2 - 1.0) 12/21/17 14:00 Ur Leukocyte Esterase NEGATIVE (NEGATIVE) 12/21/17 14:00 Urine RBC 0-2 /hpf (0-5) 12/21/17 14:00 Urine WBC 0-2 /hpf (0-5) 12/21/17 14:00 Ur Epithelial Cells FEW /lpf (FEW) 12/21/17 14:00 Urine Bacteria OCCASIONAL /hpf (NONE SEEN) 12/21/17 14:00 Urine Test NEGATIVE 12/20/17 06:10 POC Ur Test Negative 12/20/17 06:23 - Physical Exam Vitals and I&O: Vital Signs Temp 97.3 F 12/23/17 08:51 Pulse 78 12/23/17 08:51 Resp 18 12/23/17 08:51 BP 103/66 12/23/17 08:51 Pulse Ox 99 12/23/17 08:51 Intake & Output 12/22/17 12/23/17 12/23/17 18:59 06:59 18:59 Intake Total 150 100 Balance 150 100 Weight (lbs) 86.999 kg Intake: Intake, IV Amount 150 100 Piperacillin Sodium/ 100 100 Tazobact 4.5 gm In Sodium Chloride 0.9% 100 ml @ 100 mls/hr IV Q8H [facility] Rx# :[id number] cefTRIAXone 1 gm In 50 Sodium Chloride 0.9% 50 ml @ 100 mls/hr IV Q24H [facility] Rx#:[id number] Other: # Voids 3 # Bowel Movements 0 Weight Source Bedscale Active Medications: Current Medications Albuterol/Ipratropium (Duoneb Neb) 3 ml HHN Q6HRT [facility] Stop: 02/18/18 18:59 Last Admin: 12/23/17 07:10 Dose: 3 ml Albuterol/Ipratropium (Duoneb Neb) 3 ml HHN Q2HRT PRN PRN Reason: Wheezing Stop: 02/19/18 16:25 Last Admin: 12/22/17 05:04 Dose: 3 ml Dextrose/Sodium Chloride (D5-0.45ns) 1,000 mls @ 75 mls/hr IV .[id number] [facility] Stop: 02/18/18 15:31 Last Admin: 12/23/17 05:13 Dose: 75 mls/hr Azithromycin 500 mg/ Sodium (Chloride) 250 mls @ 250 mls/hr IV Q24HR [facility] Stop: 02/20/18 15:59 Last Admin: 12/22/17 17:55 Dose: 250 mls/hr Piperacillin Sod/Tazobactam (Sod 4.5 gm/ Sodium Chloride) 100 mls @ 100 mls/hr IV Q8H [facility] Stop: 02/20/18 15:59 Last Admin: 12/23/17 08:55 Dose: 100 mls/hr Ibuprofen (Motrin) 600 mg PO Q6H PRN PRN Reason: Headache/Fever Stop: 02/19/18 21:17 Last Admin: 12/22/17 23:07 Dose: 600 mg Lactobacillus Rhamnosus (Culturelle 15b) 1 each PO DAILY [facility] Stop: 02/22/18 08:59 Methylprednisolone Sodium Succinate (Solu-Medrol) 40 mg IVP Q8HR [facility] Stop: 02/20/18 12:59 Last Admin: 12/23/17 05:14 Dose: 40 mg Miscellaneous (Probiotic Screen) 1 ea MC PRN PRN PRN Reason: PROTOCOL Stop: 02/21/18 09:29 Oxycodone/Acetaminophen (Percocet 5/325mg Oral Tab) 1 tab PO Q6H PRN PRN Reason: Pain (Severe) Stop: 02/20/18 18:22 Last Admin: 12/23/17 08:55 Dose: 1 tab General: no acute distress, well developed, well nourished, cachectic HEENT: atraumatic, normocephalic, PERRLA Neck: supple, no thyromegaly Cardiovascular: S1S2, regular Lungs: clear to auscultation bilaterally, clear to percussion Abdomen: soft, no tender, no distended, no mass Extremities: no cyanosis, no clubbing, no edema Neurological: awake, alert, oriented Skin: intact Infectious Disease Assmt/Plan - Assessment Assessment: 1. Leukocytosis. There is no fever. No reactive thrombocytosis, no bandemia. Patient is to failure. It seems very reactive versus a leukemoid reaction. Cannot rule out any occult infection. Urinalysis is negative. Blood cultures are negative. CT scan of the chest abdomen pelvis negative for any abscess or infection. 2. Lactic acidosis most likely due to asthma exacerbation. Less likely sepsis. As there is no sinus symptoms of sepsis at this time. 3. Asthma with acute exacerbation. 4. Cough may have bronchitis. Or due to asthma exacerbation 5. History of polycystic ovarian syndrome. - Plan Plan: Check indium scan. Check procalcitonin. Continue Zosyn and Zithromax. If there is further improvement, may discharge the patient empirically on oral antibiotic in next one or two days. DW patient in detail.
[2017-12-23] MEDS: Azithromycin 500 MG in Sodium Chloride 0.9% 250 ML IV SCH (17:54)
--- NOTE | 2017-12-23 19:44 | Progress Notes ---
DATE: 12/23/2017 IDENTIFICATION: This is a 37-year-old female. SUBJECTIVE: The patient seen and examined. The patient is lying in the bed. The patient continues to complain of cough. Her headache is better. The patient denies any chest pain or shortness of breath. The patient denies any fever or chills. PHYSICAL EXAMINATION: VITAL SIGNS: On today's exam temperature 97.3, pulse 78, respiratory rate 18, blood pressure 103/66. HEENT: No facial asymmetry. Oropharynx congested. ____ congested. NECK: Supple, no JVD. HEART: Regular. CHEST: Lung equal in expansion, expiratory wheezing. ABDOMEN: Soft, no guarding or rigidity. Bowel sounds are present. EXTREMITIES: No edema. NEUROLOGIC: Nonfocal. AVAILABLE LABORATORY DATA: White count of 18.5, hemoglobin 12.3, platelet count of 262. Electrolytes are within normal limit. CLINICAL IMPRESSION: 1. Leukocytosis, most likely from acute leukemoid reaction. 2. Asthma exacerbation. 3. Headache, most likely migraine. 4. Overweight. 5. Elevated lactic acid, resolved. PLAN: 1. Continue IV steroids. 2. Oxygen. 3. Nebulizer treatment. 4. General nursing care. 5. Indium scan is ordered by Dr. Addison Weldon. We will wait for the reports. 6. Symptoms management. 7. Medication management. 8. Follow warehouse consultant's recommendation. 9. Care plan reviewed and discussed. JOB# [id number]
[2017-12-24] MEDS: Albuterol/Ipratropium Neb 3 ML AERS HHN SCH ×3 (00:11→13:49)
[2017-12-24] MEDS: APAP/Oxycodone 5/325mg Oral Tab PO PRN (06:06)
[2017-12-24 06:10] LABS: % BASOPHILS 0.1 % (0.0-2.0); % EOSINOPHILS 0.3 % (0.0-5.0); % LYMPHOCYTES 11.7 % (20.0-50.0); % MONOCYTES 4.9 % (2.0-10.0); HEMATOCRIT 36.4 % (41.0-60); HEMOGLOBIN 12.3 gm/dL (12-16); LYMPHOCYTE ABSOLUTE 1.7 Th/cmm (1.5-3.0); MEAN CELL VOLUME 90.3 fl (81-100); MEAN CORPUSCULAR HEMOGLOBIN 30.5 pg (27.0-31.0); MEAN CORPUSCULAR HGB CONC 33.8 pg (28.0-36.0); MEAN PLATELET VOLUME 8.3 fl; MONOCYTE ABSOLUTE 0.7 Th/cmm (0.3-1.0); NEUTROPHILE ABSOLUTE 12.2 Th/cmm (1.8-8.0); PLATELET COUNT 272 Th/cmm (150-400); RED BLOOD COUNT 4.03 Mil/cmm (3.80-5.10); RED CELL DISTRIBUTION WIDTH 11.9 % (11.5-20.0)
[2017-12-24 06:12] LABS: WHITE BLOOD COUNT 14.6 Th/cmm (4.8-10.8)
[2017-12-24 06:14] LABS: ALB/GLOB RATIO 1.4 (1.0-1.8); ALBUMIN 3.9 gm/dL (3.7-5.3); ALKALINE PHOSPHATASE 65 U/L (34-104); BILIRUBIN,TOTAL 0.2 mg/dL (0.3-1.0); BUN - UREA NITROGEN 10 mg/dL (7-25); CARBON DIOXIDE 23.1 mEq/L (21.0-31.0); CHLORIDE 103 mEq/L (98-107); CREATININE - SERUM 0.7 mg/dL (0.6-1.2); GFR AFRICAN-AMERICAN > 60.0 ml/min (>90); GFR NON AFRICAN-AMERICAN > 60.0 ml/min; GLUCOSE 131 mg/dL (70-105); POTASSIUM SERUM 4.1 mEq/L (3.5-5.1); SGOT 11 U/L (13-39); SGPT/ALT 20 U/L (7-52); SODIUM SERUM 135 mEq/L (136-145); TOTAL PROTEIN,SERUM 6.6 gm/dL (6.0-8.3)
[2017-12-24] MEDS: methylPREDNISolone SS 40 mg Vial IVP SCH (08:04)
[2017-12-24] MEDS ORDERED: Lactobacillus Rhamnosus GG 15 Billion CFU CAP.SPRINK PO SCH (09:00)
--- NOTE | 2017-12-24 09:01 | Infectious Disease Prog Note ---
Infectious Disease Subjective - Review of Systems Service Date: 12/24/17 Subjective: No fever, no chills. breathing better, WBC Count is better. Lactic acid improved. Infectious Disease Objective - Results Result Diagrams: 12/24/17 05:43 12/24/17 05:43 Recent Labs: Laboratory Last Values WBC 14.6 Th/cmm (4.8-10.8) H 12/24/17 05:43 RBC 4.03 Mil/cmm (3.80-5.10) 12/24/17 05:43 Hgb 12.3 gm/dL (12-16) 12/24/17 05:43 Hct 36.4 % (41.0-60) L 12/24/17 05:43 MCV 90.3 fl (81-100) 12/24/17 05:43 MCH 30.5 pg (27.0-31.0) 12/24/17 05:43 MCHC Differential 33.8 pg (28.0-36.0) 12/24/17 05:43 RDW 11.9 % (11.5-20.0) 12/24/17 05:43 Plt Count 272 Th/cmm (150-400) 12/24/17 05:43 MPV 8.3 fl 12/24/17 05:43 Neutrophils % 83.0 % (40.0-80.0) H 12/24/17 05:43 Band Neutrophils % 5 % (0-10) 12/21/17 13:56 Lymphocytes % 11.7 % (20.0-50.0) L 12/24/17 05:43 Monocytes % 4.9 % (2.0-10.0) 12/24/17 05:43 Eosinophils % 0.3 % (0.0-5.0) 12/24/17 05:43 Basophils % 0.1 % (0.0-2.0) 12/24/17 05:43 Neutrophils (Manual) 94 % (40-80) H 12/22/17 04:50 Lymphocytes 5 % (20-50) L 12/22/17 04:50 Monocytes 1 % (2-10) L 12/22/17 04:50 Platelet Estimate ADEQUATE (NORMAL) 12/22/17 04:50 D-Dimer 438 ng/mL (100-400) H 12/20/17 06:23 Specimen Source Arterial 12/20/17 10:00 Sample Site Right Radial 12/20/17 10:00 pH 7.43 (7.35-7.45) 12/20/17 10:00 pCO2 31.0 mmHg (35.0-45.0) L 12/20/17 10:00 pO2 71.0 mmHg (80.0-100.0) L 12/20/17 10:00 HCO3 22.0 mEq/L (20.0-26.0) 12/20/17 10:00 Base Excess -2.8 mEq/L (-3.0-3.0) 12/20/17 10:00 O2 Saturation 95.0 % (92.0-100.0) 12/20/17 10:00 Ortiz Test y 12/20/17 10:00 Vent Rate n/a 12/20/17 10:00 Inspired O2 21 12/20/17 10:00 Tidal Volume n/a 12/20/17 10:00 PEEP n/a 12/20/17 10:00 Pressure (ins/psv/peep) n/a 12/20/17 10:00 Critical Value raymon Kelly 12/20/17 10:00 Sodium 135 mEq/L (136-145) L 12/24/17 05:43 Potassium 4.1 mEq/L (3.5-5.1) 12/24/17 05:43 Chloride 103 mEq/L (98-107) 12/24/17 05:43 Carbon Dioxide 23.1 mEq/L (21.0-31.0) 12/24/17 05:43 Anion Gap 13.0 (7.0-16.0) 12/24/17 05:43 BUN 10 mg/dL (7-25) 12/24/17 05:43 Creatinine 0.7 mg/dL (0.6-1.2) 12/24/17 05:43 Est GFR ( Amer) > 60.0 ml/min (>90) 12/24/17 05:43 Est GFR (Non-Af Amer) > 60.0 ml/min 12/24/17 05:43 BUN/Creatinine Ratio 14.3 12/24/17 05:43 Glucose 131 mg/dL (70-105) H 12/24/17 05:43 Whole Bld Lactic Acid 1.78 mmol/L (0.60-1.99) 12/22/17 12:42 Calcium 9.0 mg/dL (8.6-10.3) 12/24/17 05:43 Magnesium 2.6 mg/dL (1.9-2.7) 12/20/17 10:55 Total Bilirubin 0.2 mg/dL (0.3-1.0) L 12/24/17 05:43 AST 11 U/L (13-39) L 12/24/17 05:43 ALT 20 U/L (7-52) 12/24/17 05:43 Alkaline Phosphatase 65 U/L (34-104) 12/24/17 05:43 Total Protein 6.6 gm/dL (6.0-8.3) 12/24/17 05:43 Albumin 3.9 gm/dL (3.7-5.3) 12/24/17 05:43 Globulin 2.7 gm/dL 12/24/17 05:43 Albumin/Globulin Ratio 1.4 (1.0-1.8) 12/24/17 05:43 Urine Source CLEAN C 12/21/17 14:00 Urine Color YELLOW 12/21/17 14:00 Urine Clarity CLEAR (CLEAR) 12/21/17 14:00 Urine pH 6.5 (4.6 - 8.0) 12/21/17 14:00 Ur Specific [place] <= 1.005 (1.005-1.030) 12/21/17 14:00 Urine Protein NEGATIVE mg/dL (NEGATIVE) 12/21/17 14:00 Urine Glucose (UA) NEGATIVE mg/dL (NEGATIVE) 12/21/17 14:00 Urine Ketones NEGATIVE mg/dL (NEGATIVE) 12/21/17 14:00 Urine Blood NEGATIVE (NEGATIVE) 12/21/17 14:00 Urine Nitrate NEGATIVE (NEGATIVE) 12/21/17 14:00 Urine Bilirubin NEGATIVE (NEGATIVE) 12/21/17 14:00 Urine Urobilinogen 0.2 E.U./dL (0.2 - 1.0) 12/21/17 14:00 Ur Leukocyte Esterase NEGATIVE (NEGATIVE) 12/21/17 14:00 Urine RBC 0-2 /hpf (0-5) 12/21/17 14:00 Urine WBC 0-2 /hpf (0-5) 12/21/17 14:00 Ur Epithelial Cells FEW /lpf (FEW) 12/21/17 14:00 Urine Bacteria OCCASIONAL /hpf (NONE SEEN) 12/21/17 14:00 Urine Test NEGATIVE 12/20/17 06:10 POC Ur Test Negative 12/20/17 06:23 - Physical Exam Vitals and I&O: Vital Signs Temp 97.2 F 12/24/17 07:51 Pulse 51 12/24/17 07:51 Resp 18 12/24/17 07:51 BP 113/56 12/24/17 07:51 Pulse Ox 95 12/24/17 07:51 Intake & Output 12/23/17 12/24/17 12/24/17 18:59 06:59 18:59 Intake Total 1700 350 Balance 1700 350 Weight (lbs) 88.269 kg 88.269 kg Intake: Intake, IV Amount 1200 100 D5-0.45NS 1,000 ml @ 75 1000 mls/hr IV .[id number] [facility] Rx #:[id number] Piperacillin Sodium/ 200 100 Tazobact 4.5 gm In Sodium Chloride 0.9% 100 ml @ 100 mls/hr IV Q8H [facility] Rx# :[id number] Oral 500 250 Other: # Voids 4 2 # Bowel Movements 1 0 Weight Source Bedscale Bedscale Active Medications: Current Medications Albuterol/Ipratropium (Duoneb Neb) 3 ml HHN Q6HRT [facility] Stop: 02/18/18 18:59 Last Admin: 12/24/17 07:26 Dose: 3 ml Albuterol/Ipratropium (Duoneb Neb) 3 ml HHN Q2HRT PRN PRN Reason: Wheezing Stop: 02/19/18 16:25 Last Admin: 12/22/17 05:04 Dose: 3 ml Dextrose/Sodium Chloride (D5-0.45ns) 1,000 mls @ 75 mls/hr IV .[id number] [facility] Stop: 02/18/18 15:31 Last Admin: 12/23/17 23:23 Dose: 75 mls/hr Azithromycin 500 mg/ Sodium (Chloride) 250 mls @ 250 mls/hr IV Q24HR [facility] Stop: 02/20/18 15:59 Last Admin: 12/23/17 17:54 Dose: 250 mls/hr Piperacillin Sod/Tazobactam (Sod 4.5 gm/ Sodium Chloride) 100 mls @ 100 mls/hr IV Q8H [facility] Stop: 02/20/18 15:59 Last Admin: 12/24/17 08:04 Dose: 100 mls/hr Ibuprofen (Motrin) 600 mg PO Q6H PRN PRN Reason: Headache/Fever Stop: 02/19/18 21:17 Last Admin: 12/23/17 11:36 Dose: 600 mg Lactobacillus Rhamnosus (Culturelle 15b) 1 each PO DAILY [facility] Stop: 02/22/18 08:59 Last Admin: 12/24/17 08:04 Dose: 1 each Methylprednisolone Sodium Succinate (Solu-Medrol) 20 mg IVP Q12HR [facility] Stop: 02/21/18 20:59 Last Admin: 12/24/17 08:04 Dose: 20 mg Miscellaneous (Probiotic Screen) 1 ea MC PRN PRN PRN Reason: PROTOCOL Stop: 02/21/18 09:29 Oxycodone/Acetaminophen (Percocet 5/325mg Oral Tab) 1 tab PO Q6H PRN PRN Reason: Pain (Severe) Stop: 02/20/18 18:22 Last Admin: 12/24/17 06:06 Dose: 1 tab General: no acute distress, well developed, well nourished HEENT: atraumatic, normocephalic, PERRLA Neck: supple, no thyromegaly Cardiovascular: S1S2, regular Lungs: clear to auscultation bilaterally, clear to percussion Abdomen: soft, no tender, no distended Extremities: no cyanosis, no clubbing, no edema Neurological: awake, alert, oriented Skin: intact Infectious Disease Assmt/Plan - Assessment Assessment: 1. Leukocytosis. There is no fever. No reactive thrombocytosis, no bandemia. Patient is to failure. It seems very reactive versus a leukemoid reaction. Cannot rule out any occult infection. Urinalysis is negative. Blood cultures are negative. CT scan of the chest abdomen pelvis negative for any abscess or infection. 2. Lactic acidosis most likely due to asthma exacerbation. Less likely sepsis. As there is no sinus symptoms of sepsis at this time. 3. Asthma with acute exacerbation. 4. Cough may have bronchitis. Or due to asthma exacerbation 5. History of polycystic ovarian syndrome. - Plan Plan: Check indium scan. Check procalcitonin. Continue Zosyn and Zithromax. may discharge the patient empirically on oral antibiotic augmentin x 5 days and zithro x 2 days/ DW patient in detail.
--- NOTE | 2017-12-24 11:46 | Discharge Summary ---
DATE OF DISCHARGE: 12/24/2017 PRINCIPAL DIAGNOSES: 1. Acute respiratory failure, required oxygen therapy. 2. Asthma exacerbation. 3. Leukocytosis secondary glaucoma reaction. 4. Migraine headache. 5. Overweight. 6. Elevated lactic acid, resolved at the time of discharge, suspect secondary to hypoxia. BRIEF STATEMENT FOR THE REASON FOR ADMISSION: A 37-year-old female with a history of exercise-induced asthma, presented to Emergency Room for evaluation of cough, congestion, shortness of breath. The patient was seen by Emergency Room MD and subsequently admitted to the hospital for further treatment after patient failed Emergency Room therapy. Please refer to my H and P for further information. HOSPITAL COURSE: The patient was admitted to Med/Surg floor. The patient was given oxygen, nebulizer treatment, IV steroid, IV antibiotic as well. The patient was also seen by Infectious Disease as well as maritime guard as well. The patient did start to have significant improvement with prescribed treatment. The patient is noted to have resolution of lactic acid once respiratory failure status improved. The patient also noted to have leukocytosis, which started to improve as well. Indium scan was done as well. The patient did have a followup CT scan of the chest, which was unremarkable for any infiltrate. She did complain of the headache Emergency Room MD ordered the CT head, which was unremarkable. The patient was given symptomatic therapy for her migraine headache and she did improve significantly. The patient was ambulatory and patient had a significant improvement, decision was made that the patient should be discharged home. The patient is discharged home on p.o. prednisone for 5 days along with Augmentin and Zithromax and suggested by Infectious Disease to be continued for 5 days and 2 days respectively. The patient will take Advair 250/50 one inhalation b.i.d. as well. The patient is advised to see her clock and watch hands mounter in 1 week. If recurrent symptoms, the patient is advised to go to Emergency Room. [facility]# [id number]
[2017-12-24] MEDS: Albuterol/Ipratropium Neb 3 ML AERS HHN PRN (16:28)
--- NOTE | 2017-12-24 18:14 | Progress Notes ---
DATE: 12/24/2017 PATIENT IDENTIFICATION: A 37-year-old female. SUBJECTIVE: The patient seen and examined. The patient is feeling better, still has some cough, but otherwise she is doing fairly well. The patient remained afebrile. Denies any chest pain, abdominal pain, nausea, vomiting, headache, seizure, syncopal episode. PHYSICAL EXAMINATION: VITAL SIGNS: See nurse's note. HEENT: Poor dentition. NECK: Supple, no JVD. HEART: Regular. LUNGS: Clear to auscultation. ABDOMEN: Soft, no guarding or rigidity. Bowel sounds present. EXTREMITIES: No edema. NEUROLOGIC: Nonfocal. AVAILABLE DIAGNOSTIC DATA: I reviewed. CLINICAL IMPRESSION: 1. Asthma exacerbation. 2. Migraine headache. 3. Obesity. 4. Leukocytosis. 5. Elevated lactic acid, resolved. PLAN: Discharged to home with p.o. prednisone along with Augmentin and Zithromax. The patient is to use Advair on a daily basis for her asthma prevention. The patient will be advised to see tractor trailer driver in 1 week as well. JOB# [id number]
--- NOTE | 2017-12-25 11:05 | Diagnostic Imaging Report ---
Nuclear medicine white blood cell scan History: Leukocytosis Comparison: None Technique/procedure: 520 uCi indium 111 white blood cells was administered intravenously and 24 hour whole body images were obtained. Findings: Physiologic splenic, hepatic, and bone marrow uptake is noted. Focal activity is seen at the injection site of the right distal humerus. No scintigraphic evidence of an abscess. IMPRESSION: No scintigraphic evidence of an abscess.
== END 2017-12-24 17:43 | disposition home or self-care (01) | DRG 189 ==
LOC: EEVIPCON 05:48 → ER 05:48 → MSI 15:45
PROVIDERS: ADMIT Internal Medicine; ATTEND Internal Medicine
DX: J96.01 Acute respiratory failure with hypoxia (principal); J45.901 Unspecified asthma with (acute) exacerbation; E87.2 Acidosis; J20.9 Acute bronchitis, unspecified; E28.2 Polycystic ovarian syndrome; D72.823 Leukemoid reaction; G43.909 Migraine, unspecified, not intractable, without status migrainosus; I95.9 Hypotension, unspecified; E66.3 Overweight; Z68.35 Body mass index [BMI] 35.0-35.9, adult; E66.9 Obesity, unspecified; H40.9 Unspecified glaucoma
CPT/HCPCS: 36415-UA; 70450-TC; 71045-TC; 71250-TC; 78806-TC; 80048-TC; 80053-TC; 81001-TC; 81025-TC; 82803-TC; 83605; 83735-TC; 84145-90; 85007-TC; 85025-TC; 85027-TC; 85379-TC; 87086-90; 93005; 94640; 94760; A9521; J0456; J0696; J2543; J2920; J3475; J7030; Q9967; Z7610